=== PATIENT | female | born 1985 | race Caucasian/White ===

== ENCOUNTER 2021-02-02 11:03 | Emergency (ER) | payer BC ==
--- NOTE | 2021-02-02 11:06 | EDM.PDOC ---
ED HPI GENERAL MEDICAL PROBLEM - General Chief Complaint: Bite:Animal, Insect Stated Complaint: RT HAND DOG BITE Time Seen by Provider: 02/02/21 11:04 Source of Information: Reports: Patient History Limitations: Reports: No Limitations - History of Present Illness INITIAL COMMENTS - FREE TEXT/NARRATIVE: 35-year-old female presents for dog bite to right hand. Patient's tetanus vaccination is not up-to-date. Patient's dogs were fighting over bird and she intervened and was bit in the hand. She sustained a small linear laceration to the dorsum of her right hand. She also has some scrapes on her fingers. No other symptoms. Right hand Pain Score (Numeric/FACES): 2 - Related Data Allergies Allergy/AdvReac Type Severity Reaction Status Date / Time No Known Allergies Allergy Verified 02/02/21 11:21 Home Meds: Home Meds Amoxicillin/Potassium Clav [Augmentin 875-125 Tablet] 1 each PO BID 7 Days #14 tablet 02/02/21 [Rx] ED ROS GENERAL - Review of Systems Review Of Systems: Comprehensive ROS is negative, except as noted in HPI. ED EXAM, ANIMAL BITE - Physical Exam Exam: See Below Exam Limited By: No Limitations General Appearance: Alert, WD/WN, No Apparent Distress Ears: Hearing Grossly Normal Throat/Mouth: Normal Voice, No Airway Compromise Head: Atraumatic, Normocephalic Neck: Normal Inspection Respiratory/Chest: No Respiratory Distress, No Accessory Muscle Use Cardiovascular: Normal Peripheral Pulses, Regular Rate, Rhythm Extremities: Normal Inspection Neurological: Normal Cognition, Normal Gait Psychiatric: Normal Affect, Normal Mood Skin Exam: Normal Color, Warm/Dry, Other (<1-cm linear laceration to dorsum of R hand) ED ANIMAL BITE PROCEDURES - Laceration/Wound Repair Right Dorsal Hand Lac/Wound Length In cm: 1 Appearance: Superficial Anesthetic Type: Local Local Anesthesia - Lidocaine (Xylocaine): 1% with EPI Local Anesthetic Volume: 2cc Skin Prep: Isopropyl Alcohol (Alcohol) Saline Irrigation (cc's): 50 Suture Size: 5-0 # of Sutures: 1 Sterile Dressing Applied: Nurse Tetanus Status Addressed: Yes Complications: No Course - Vital Signs Last Recorded V/S: Last Vital Signs Temp 98.0 F 02/02/21 11:21 Pulse 66 02/02/21 11:21 Resp 16 02/02/21 11:21 BP 110/77 02/02/21 11:21 Pulse Ox 97 02/02/21 11:21 - Orders/Labs/Meds Orders: Active Orders 24 hr Category Date Time Status Vaccines to be Administered [RC] PER UNIT ROUTINE Care 02/02/21 11:18 Active Meds: Medications Discontinued Medications Generic Name Dose Route Start Last Admin Trade Name Florence PRN Reason Stop Dose Admin Diphtheria/Tetanus/Acell Pertussis 0.5 ml 02/02/21 11:18 Diphtheria,Pertussis(Acell),Tetanus Vaccine 0.5 Ml Syringe IM 02/02/21 11:19 .ONCE ONE Lidocaine HCl Confirm 02/02/21 11:23 Xylocaine-Mpf 1% Administered 02/02/21 11:24 Dose 2 mls @ as directed .ROUTE .STK-MED ONE - Re-Assessments/Exams Free Text/Narrative Re-Assessment/Exam: 02/02/21 11:31 Laceration repaired as noted. Augmentin sent to pharmacy. Removal in 7 to 10 days. Departure - Departure Time of Disposition: 11:32 Disposition: Home, Self-Care 01 Condition: Good Clinical Impression: Laceration Dog bite Qualifiers: Encounter type: initial encounter Qualified Code(s): W54.0XXA - Bitten by dog, initial encounter - Discharge Information Prescriptions: Amoxicillin/Potassium Clav [Augmentin 875-125 Tablet] 1 each PO BID 7 Days #14 tablet Instructions: Animal Bite, Adult, Laceration Care, Adult Referrals: Gene Zepeda MD [Primary Care Provider] - Forms: ED Department Discharge Additional Instructions: Please see a medical provider to have sutures removed in 7 to 10 days. Please take antibiotics as prescribed. The following information is given to patients seen in the emergency department who are being discharged to home. This information is to outline your options for follow-up care. We provide all patients seen in our emergency department with a follow-up referral. The need for follow-up, as well as the timing and circumstances, are variable depending upon the specifics of your emergency department visit. If you don't have a primary care physician on staff, we will provide you with a referral. We always advise you to contact your personal physician following an emergency department visit to inform them of the circumstance of the visit and for follow-up with them and/or the need for any referrals to a consulting specialist. The emergency department will also refer you to a specialist when appropriate. This referral assures that you have the opportunity for follow-up care with a specialist. All of these measure are taken in an effort to provide you with optimal care, which includes your follow-up. Under all circumstances we always encourage you to contact your private physician who remains a resource for coordinating your care. When calling for follow-up care, please make the office aware that this follow-up is from your r ecent emergency room visit. If for any reason you are refused follow-up, please contact the [facility] Emergency Department at and asked to speak to the emergency department charge nurse. Please follow up with your primary care physician. If you do not have a primary care physician, see below: [facility] [address] [place] [id number] [facility] [address] [place] [address] [id number] [facility] [address] [place] [id number] Sepsis Event Note (ED) - Focused Exam Vital Signs: Vital Signs Temp Pulse Resp BP Pulse Ox 02/02/21 11:21 98.0 F 66 16 110/77 97 - My Orders Last 24 Hours: My Active Orders 02/02/21 11:18 Vaccines to be Administered [RC] PER UNIT ROUTINE - Assessment/Plan Last 24 Hours: My Active Orders 02/02/21 11:18 Vaccines to be Administered [RC] PER UNIT ROUTINE
[2021-02-02] MEDS ORDERED: Diphtheria,Pertussis(Acell),Tetanus Vaccine 0.5 ML Syringe IM ONE (11:18)
[2021-02-02] MEDS ORDERED: Lidocaine 1% 2 ML ONE (11:23)
[2021-02-02 11:24] VITALS: BP 110/77; PULSE 66
[2021-02-02] MEDS ORDERED: Lidocaine 1% PF 2 ML SDV INJECT ONE (11:42)
== END 2021-02-02 11:44 | disposition home or self-care (01) ==
LOC: MW.ED 11:03
DX: S61.451A Open bite of right hand, initial encounter (principal); Z23 Encounter for immunization; W54.0XXA Bitten by dog, initial encounter
CPT/HCPCS: 12001; 90471; 90715; 99283-25

== ENCOUNTER 2021-05-13 06:42 | Day surgery (SDC) | payer BC ==
[~2021-05-13 06:42] MED LIST: Sodium Chloride 0.9% 10 ML Syringe FLUSH PRN; Sodium Chloride 0.9% 2.5 ML Syringe FLUSH PRN; Sodium Chloride 0.9% 20 ML SDV IV PRN
[2021-05-13] MEDS ORDERED: Scopolamine 1.5 MG Transdermal Patch ONE (06:44)
[2021-05-13] MEDS ORDERED: Lactated Ringers 1,000 ML IV SCH (07:00)
[2021-05-13] MEDS ORDERED: Midazolam 1 MG/ML 2 ML SDV ONE (07:17)
[2021-05-13] MEDS ORDERED: Lidocaine 2% 5 ML SDV ONE (07:17)
[2021-05-13] MEDS ORDERED: Ondansetron 4 MG/2 ML SDV ONE (07:17)
[2021-05-13] MEDS ORDERED: fentaNYL 100 MCG/2 ML SDV ONE (07:17)
[2021-05-13] MEDS ORDERED: Propofol 200 MG/20 ML SDV ONE (07:17)
[2021-05-13] MEDS ORDERED: Dexamethasone 4 MG/ML 5 ML MDV ONE (07:17)
[2021-05-13] MEDS ORDERED: Ondansetron 4 MG/2 ML SDV IVPUSH PRN (07:18)
[2021-05-13] MEDS ORDERED: Metoclopramide 10 MG/2 ML SDV IVPUSH PRN (07:18)
[2021-05-13] MEDS ORDERED: Naloxone 0.4 MG/ML SDV IVPUSH PRN (07:18)
[2021-05-13] MEDS ORDERED: HYDROmorphone 1 MG/ML Syringe IVPUSH PRN (07:18)
[2021-05-13] MEDS ORDERED: Morphine 2 MG/ML SYRINGE IVPUSH PRN (07:18)
[2021-05-13] MEDS ORDERED: Albuterol 0.083% 2.5 MG/3 ML Neb Soln NEB PRN (07:18)
--- NOTE | 2021-05-13 07:18 | PCM.PREANE ---
Preanesthetic Assessment - Anesthesia/Transfusion/Family Hx Anesthesia History: Prior Anesthesia Without Reaction Family History of Anesthesia Reaction: No Transfusion History: No Prior Transfusion(s) - Review of Systems General: No Symptoms Pulmonary: No Symptoms Cardiovascular: No Symptoms Gastrointestinal: No Symptoms Neurological: No Symptoms Other: Reports: None - Physical Assessment NPO Status Date: 05/13/21 NPO Status Time: 00:00 Vital Signs: Last Vital Signs Temp 97.9 F 05/13/21 06:50 Pulse 80 05/13/21 06:50 Resp 16 05/13/21 06:50 BP 116/57 L 05/13/21 06:50 Pulse Ox 98 05/13/21 06:50 Height: 5 ft 7 in Weight: 147 lb ASA Class: 1 Mental Status: Alert & Oriented x3 Airway Class: Mallampati = 2 Dentition: Reports: Normal Dentition Thyro-Mental Finger Breadths: 3 Mouth Opening Finger Breadths: 3 ROM/Head Extension: Full Lungs: Clear to Auscultation, Normal Respiratory Effort Cardiovascular: Regular Rate, Regular Rhythm - Lab Values: Laboratory Last Values WBC 7.95 K/uL (4.0-11.0) 05/12/21 13:33 RBC 4.73 M/uL (4.30-5.90) 05/12/21 13:33 Hgb 14.0 g/dL (12.0-16.0) 05/12/21 13:33 Hct 41.0 % (36.0-46.0) 05/12/21 13:33 MCV 86.7 fL (80.0-98.0) 05/12/21 13:33 MCH 29.6 pg (27.0-32.0) 05/12/21 13:33 MCHC 34.1 g/dL (31.0-37.0) 05/12/21 13:33 RDW Std Deviation 41.5 fl (28.0-62.0) 05/12/21 13:33 RDW Coeff of Cameron 13 % (11.0-15.0) 05/12/21 13:33 Plt Count 185 K/uL (150-400) 05/12/21 13:33 MPV 11.70 fL (7.40-12.00) 05/12/21 13:33 Nucleated RBC % 0.0 /100WBC 05/12/21 13:33 Nucleated RBCs # 0 K/uL 05/12/21 13:33 HCG, Quant < 1.0 mIU/mL 05/12/21 13:33 - Allergies Allergies/Adverse Reactions: Allergies Allergy/AdvReac Type Severity Reaction Status Date / Time No Known Allergies Allergy Verified 05/07/21 08:10 - Anesthesia Plan Pre-Op Medication Ordered: Other (Scopolamine patch) - Acknowledgements Anesthesia Type Planned: General Anesthesia Pt an Appropriate Candidate for the Planned Anesthesia: Yes Alternatives and Risks of Anesthesia Discussed w Pt/Guardian: Yes Pt/Guardian Understands and Agrees with Anesthesia Plan: Yes PreAnesthesia Questionnaire HEENT History: Reports: Other (See Below) Other HEENT History: wears glasses/contacts Cardiovascular History: Reports: None Respiratory History: Reports: None Gastrointestinal History: Reports: None Genitourinary History: Reports: None OUTSIDE CUTTER HAND History: Reports: Musculoskeletal History: Reports: None Neurological History: Reports: Migraines Psychiatric History: Reports: None Endocrine/Metabolic History: Reports: None Hematologic History: Reports: None Immunologic History: Reports: None Oncologic (Cancer) History: Reports: None Dermatologic History: Reports: Eczema, Other (See Below) Other Dermatologic History: adult acne - Past Surgical History Head Surgeries/Procedures: Reports: None HEENT Surgical History: Reports: Tonsillectomy Cardiovascular Surgical History: Reports: None Respiratory Surgical History: Reports: None GI Surgical History: Reports: None Female Surgical History: Reports: None Endocrine Surgical History: Reports: None Neurological Surgical History: Reports: None Musculoskeletal Surgical History: Reports: None Oncologic Surgical History: Reports: None Dermatological Surgical History: Reports: None - SUBSTANCE USE Tobacco Use Status *Q: Never Tobacco User - HOME MEDS Home Medications: Home Meds Acetaminophen [Tylenol] 2 tab PO ASDIRECTED PRN 05/07/21 [History] Dapsone/Spironolactone/Niacin [Diasdimaxia 8.5%-2%-5% Gel] 1 applic TOP BID 05/07/21 [History] Ibuprofen 1 tab PO ASDIRECTED PRN 05/07/21 [History] Multivitamin with Minerals [Multivitamins with Minerals] 1 tab PO DAILY 05/07/21 [History] Tolterodine Tartrate [Detrol LA] 4 mg PO DAILY 05/07/21 [History] valACYclovir HCl [Valtrex] 1 tab PO BID PRN 05/07/21 [History] - CURRENT (IN HOUSE) MEDS Current Meds: Current Medications Lactated Ringer's (Ringers, Lactated) 1,000 mls @ 100 mls/hr IV ASDIRECTED VICENTE Last Admin: 05/13/21 07:04 Dose: 100 mls/hr Documented by: Sodium Chloride (Sodium Chloride 0.9% 10 Ml Syringe) 10 ml FLUSH ASDIRECTED PRN PRN Reason: Keep Vein Open Sodium Chloride (Sodium Chloride 0.9% 2.5 Ml Syringe) 2.5 ml FLUSH ASDIRECTED PRN PRN Reason: Keep Vein Open Sodium Chloride (Sodium Chloride 0.9% 20 Ml Sdv) 10 ml IV ASDIRECTED PRN PRN Reason: IV Use Discontinued Medications Scopolamine (Scopolamine 1.5 Mg Transdermal Patch) Confirm Administered Dose 1.5 mg .ROUTE .STK-MED ONE Stop: 05/13/21 06:45 Last Admin: 05/13/21 07:05 Dose: 1.5 mg Documented by:
[2021-05-13] MEDS ORDERED: Ketorolac 30 MG/ML SDV ONE (08:27)
--- NOTE | 2021-05-13 08:41 | PCM.OPNOTE ---
- General Post-Op/Procedure Note Date of Surgery/Procedure: 05/13/21 Operative Procedure(s): Diagnostic hysteroscopy, endometrial ablation Findings: Normal appearing uterine cavity Pre Op Diagnosis: Abnormal uterine bleeding Post-Op Diagnosis: Same Anesthesia Technique: General LMA Primary Surgeon: Lela Lorenz Pathology: endometrial curretings Fluid Replacement, Intraop: 900 EBL in mLs: 10 Complications: none known Condition: Good Free Text/Narrative:: Intake & Output 05/12/21 05/13/21 05/13/21 22:59 06:59 14:59 Output Total 100 Balance -100 Dictation [id number]
[2021-05-13] MEDS ORDERED: Acetaminophen 1,000 MG in Premix Bag 1 BAG IV ONE (08:48)
[2021-05-13] MEDS: fentaNYL 100 MCG/2 ML SDV IVPUSH PRN ×2 (08:52→09:03)
--- NOTE | 2021-05-13 09:04 | PCM.POSTAN ---
POST ANESTHESIA ASSESSMENT - MENTAL STATUS Mental Status: Alert, Oriented - VITAL SIGNS Vital Signs: Last Vital Signs Temp 100.0 F 05/13/21 08:39 Pulse 76 05/13/21 08:49 Resp 16 05/13/21 08:49 BP 109/71 05/13/21 08:49 Pulse Ox 100 05/13/21 08:49 - RESPIRATORY Respiratory Status: Respiratory Rate WNL, Airway Patent, O2 Saturation Stable - CARDIOVASCULAR CV Status: Pulse Rate WNL, Blood Pressure Stable - GASTROINTESTINAL GI Status: No Symptoms - POST OP HYDRATION Hydration Status: Adequate & Stable
--- NOTE | 2021-05-13 09:05 | PCM48HPAN ---
Post Anesthesia Note - EVALUATION WITHIN 48HRS OF ANESTHETIC Vital Signs in Normal Range: Yes Patient Participated in Evaluation: Yes Respiratory Function Stable: Yes Airway Patent: Yes Cardiovascular Function Stable: Yes Hydration Status Stable: Yes Pain Control Satisfactory: Yes Nausea and Vomiting Control Satisfactory: Yes Mental Status Recovered: Yes Vital Signs: Last Vital Signs Temp 100.0 F 05/13/21 08:39 Pulse 76 05/13/21 08:49 Resp 16 05/13/21 08:49 BP 109/71 05/13/21 08:49 Pulse Ox 100 05/13/21 08:49
[2021-05-13] MEDS ORDERED: Ibuprofen 400 MG Tab PO ONE (10:17)
[2021-05-13 10:33] VITALS: BP 110/62; PULSE 71
--- NOTE | 2021-05-13 15:08 | OR ---
SURGEON: Lela Lorenz M.D. DATE OF PROCEDURE: 05/13/2021 PREOPERATIVE DIAGNOSIS: Abnormal uterine bleeding. POSTOPERATIVE DIAGNOSIS: Abnormal uterine bleeding. PROCEDURE: Diagnostic hysteroscopy with thermal endometrial ablation. PRIMARY SURGEON: Lela Lorenz M.D. ANESTHESIA: General LMA. ESTIMATED BLOOD LOSS: 10 mL. FLUIDS: 900 mL of crystalloid. FLUID DEFICIT: 40 mL of crystalloid. COMPLICATIONS: None known. DISPOSITION: The patient to PACU, stable. PROCEDURE IN DETAIL: Alyse is a 36-year-old female who has ongoing difficulties with abnormal uterine bleeding. Pelvic ultrasound is reassuring and endometrial biopsy was benign. Options have been discussed with her. She would like to proceed with endometrial ablation. Risks of the procedure have been discussed with her. Proper consent was obtained. The patient was taken to the operating room where she underwent general LMA, was then placed in modified dorsal lithotomy position, was prepped and draped in usual sterile fashion. Time-out was performed. Speculum was introduced into the vagina. Anterior lip of cervix grasped with an Allis clamp. A 3 mm hysteroscope was introduced using normal saline as distention media. I was able to visualize uterine cavity, right ostia, left ostia, lower uterine segment, endocervical canal. No polyps or intracavitary lesions were identified. Hysteroscope was now removed. Gentle sharp curettage was performed after dilating the cervix to 5 mm. The Antonietta device was now prepped according to can worker's protocol. The balloon was introduced into the uterine cavity. The arms opened. Balloon insufflated and the integrity was then tested and found to be satisfactory. Therefore, the ablative process took place for a total of 120 seconds. At the completion of the ablative process, the balloon was desufflated. The arms were released and closed, and the Antonietta device was removed from the uterine cavity. Hemostasis appeared evident. Sponge and instrument count was correct. The patient will go to LDRP, extubated, and to PACU in stable condition. SPECIMENS: To Pathology. PEPE / RD /[id number]
== END 2021-05-13 11:10 | disposition home or self-care (01) ==
LOC: MW.SDS 06:42
PROVIDERS: ATTEND Obstetrics & Gynecology
DX: N93.9 Abnormal uterine and vaginal bleeding, unspecified (principal); Z79.899 Other long term (current) drug therapy; Z98.890 Other specified postprocedural states; R39.15 Urgency of urination; Z80.3 Family history of malignant neoplasm of breast
CPT/HCPCS: 36415; 58563; 84702; 85027; A9270; J0131; J1100; J1885; J2250; J2704; J3010; J7120; 00952; J2405